=== PATIENT | male | born 1985 | race Caucasian/White ===

== ENCOUNTER 2021-08-28 07:51 | Emergency (ER) | payer MEDICAID ==
[2021-08-28] MEDS ORDERED: KETOROLAC 15 MG/ML 1 ML VIAL IVP STA ×2 (08:01→09:30)
[2021-08-28] MEDS ORDERED: ONDANSETRON 4 MG/2 ML VIAL IVP STA (08:01)
[2021-08-28] MEDS ORDERED: HYDROmorphone 1 MG/ML 1 ML SYRINGE IVP STA (08:01)
[2021-08-28 08:04] VITALS: RESP 16; TEMP 98.3
[2021-08-28 08:21] LABS: Basophils # (A) 0.2 k/uL (0-0.2); Basophils % (A) 2 %; Eosinophils # (A) 0.2 k/uL (0-0.7); Eosinophils % (A) 1 %; HCT 51.8 % (39.0-53.0); Lymphocytes # (A) 2.6 k/uL (1.0-4.8); Lymphocytes % (A) 23 %; MCH 30.7 pg (25.0-35.0); MCHC 32.9 g/dL (31.0-37.0); MCV 93.3 fL (80.0-100.0); Monocytes # (A) 0.5 k/uL (0-1.0); Monocytes % (A) 5 %; Neutrophils # (A) 7.7 k/uL (1.3-7.7); Neutrophils % (A) 68 %; Platelet Count 205 k/uL (150-450); RBC 5.56 m/uL (4.30-5.90); RDW 12.8 % (11.5-15.5); WBC 11.4 k/uL (3.8-10.6)
[2021-08-28] MEDS ORDERED: DIAZEPAM 5 MG/ML 2 ML INJ IVP STA (08:28)
[2021-08-28 08:33] LABS: ALT 78 U/L (4-49); AST 29 U/L (17-59); African American GFR (CKD) >90 (>60 ml/min/1.73 sqM); Albumin 4.7 g/dL (3.5-5.0); Alkaline Phosphatase 46 U/L (38-126); Anion Gap 10 mmol/L; Blood Urea Nitrogen 23 mg/dL (9-20); C Reactive Protein <0.5 mg/dL (<1.0); Calcium 9.5 mg/dL (8.4-10.2); Carbon Dioxide 25 mmol/L (22-30); Chloride 105 mmol/L (98-107); Glucose 112 mg/dL (74-99); Non-African American GFR(CKD) 85 (>60 ml/min/1.73 sqM); Potassium 4.1 mmol/L (3.5-5.1); Sodium 140 mmol/L (137-145); Total Bilirubin 1.1 mg/dL (0.2-1.3); Total Protein 7.5 g/dL (6.3-8.2)
--- NOTE | 2021-08-28 08:40 | ED ---
General Adult HPI - General Chief complaint: Extremity Injury, Lower Stated complaint: Back pain Time Seen by Provider: 08/28/21 07:55 Source: patient, RN notes reviewed Mode of arrival: ambulatory Limitations: no limitations - History of Present Illness Initial comments: This a 35-year-old male presents emergency Department with chief complaint of low back pain, left leg radicular symptoms. Patient states been struggling with this for last several weeks but states this past week she's had increasing discomfort in which she's been on prednisone 50 mg, he states he seen his chiropractor twice. He states that the pain is just unbearable today. He states he has pain, numbness down his left leg and the lateral toes. Patient does have history of back surgery in which he had his L4-L5 disc when he was 20. Patient denies any bowel incontinence. He states that he is able to urinate states feels different at times but states he is able to empty his bladder. Patient has no abdominal pain no fevers or chills no trauma. - Related Data Previous Rx's Medication Instructions Recorded Cyclobenzaprine [Flexeril] 10 mg PO TID PRN #15 tab 08/28/21 HYDROcodone/APAP 5-325MG [[place] 5] 1 each PO Q6HR PRN #12 tab 08/28/21 predniSONE 10 mg PO DIRECTED #20 tab 08/28/21 Allergies Allergy/AdvReac Type Severity Reaction Status Date / Time cephalexin [From Keflex] AdvReac Unknown Verified 08/28/21 08:04 Review of Systems ROS Statement: Those systems with pertinent positive or pertinent negative responses have been documented in the HPI. ROS Other: All systems not noted in ROS Statement are negative. Past Medical History Additional Past Medical History / Comment(s): hypopituitary syndrome, hypogonadism History of Any Multi-Drug Resistant Organisms: None Reported Past Surgical History: Orthopedic Surgery Additional Past Surgical History / Comment(s): back surgery, shoulder surgery x2 Past Psychological History: No Psychological Hx Reported Smoking Status: Never smoker Past Alcohol Use History: Occasional Past Drug Use History: None Reported General Exam Limitations: no limitations General appearance: alert, in no apparent distress, other (Appears uncomfortable) Respiratory exam: Present: normal lung sounds bilaterally. Absent: respiratory distress, wheezes, rales, rhonchi, stridor Cardiovascular Exam: Present: regular rate, normal rhythm, normal heart sounds. Absent: systolic murmur, diastolic murmur, rubs, gallop, clicks Back exam: Present: tenderness. Absent: full ROM Skin exam: Present: warm, dry, intact, normal color. Absent: rash Course Vital Signs 08/28/21 07:55 Temperature 98.3 F Pulse Rate 104 H Respiratory 16 Rate Blood Pressure 154/129 O2 Sat by Pulse 97 Oximetry Medical Decision Making - Medical Decision Making CT shows evidence of degenerative changes, possible S1 compression on the left. Patient did have some mild improvement after Toradol and 1 mg Valium. Patient's they will see him today, sitting at this point. He feels comfortable with discharge with probable pain control return parameters were discussed. MRI was written - Lab Data Result diagrams: 08/28/21 08:00 08/28/21 08:00 Lab Results 08/28/21 08/28/21 Range/Units 08:00 08:00 WBC 11.4 H (3.8-10.6) k/uL RBC 5.56 (4.30-5.90) m/uL Hgb 17.0 (13.0-17.5) gm/dL Hct 51.8 (39.0-53.0) % MCV 93.3 (80.0-100.0) fL MCH 30.7 (25.0-35.0) pg MCHC 32.9 (31.0-37.0) g/dL RDW 12.8 (11.5-15.5) % Plt Count 205 (150-450) k/uL MPV 8.0 Neutrophils % 68 % Lymphocytes % 23 % Monocytes % 5 % Eosinophils % 1 % Basophils % 2 % Neutrophils # 7.7 (1.3-7.7) k/uL Lymphocytes # 2.6 (1.0-4.8) k/uL Monocytes # 0.5 (0-1.0) k/uL Eosinophils # 0.2 (0-0.7) k/uL Basophils # 0.2 (0-0.2) k/uL Sodium 140 (137-145) mmol/L Potassium 4.1 (3.5-5.1) mmol/L Chloride 105 (98-107) mmol/L Carbon Dioxide 25 (22-30) mmol/L Anion Gap 10 mmol/L BUN 23 H (9-20) mg/dL Creatinine 1.13 (0.66-1.25) mg/dL Est GFR (CKD-EPI)AfAm >90 (>60 ml/min/1.73 sqM) Est GFR (CKD-EPI)NonAf 85 (>60 ml/min/1.73 sqM) Glucose 112 H (74-99) mg/dL Calcium 9.5 (8.4-10.2) mg/dL Total Bilirubin 1.1 (0.2-1.3) mg/dL AST 29 (17-59) U/L ALT 78 H (4-49) U/L Alkaline Phosphatase 46 (38-126) U/L C-Reactive Protein <0.5 (<1.0) mg/dL Total Protein 7.5 (6.3-8.2) g/dL Albumin 4.7 (3.5-5.0) g/dL Disposition Clinical Impression: Left sacral radiculopathy, Lumbar back pain Disposition: HOME SELF-CARE Condition: Stable Additional Instructions: Please return to the Emergency Department if symptoms worsen or any other concerns. Prescriptions: Cyclobenzaprine [Flexeril] 10 mg PO TID PRN #15 tab PRN Reason: Muscle Spasm HYDROcodone/APAP 5-325MG [[place] 5] 1 each PO Q6HR PRN #12 tab PRN Reason: Pain predniSONE 10 mg PO DIRECTED #20 tab Is patient prescribed a controlled substance at d/c from ED?: Yes When asked, does pt state using other controlled substances?: No If prescribed controlled substance>3 days was MAPS reviewed?: Prescribed <3 Days If opioid is for acute pain is fill amount 7 days or less?: Yes If Rx opioid, was Start Talking consent form obtained?: Yes Referrals: Erin Lee DO [Primary Care Provider] - 1-2 days Time of Disposition: 09:38
--- NOTE | 2021-08-28 08:55 | CT ---
EXAMINATION TYPE: CT lumbar spine wo con DATE OF EXAM: 08/28/2021 8:38 AM COMPARISON: None available HISTORY: Pain, left radicular symptoms CT DLP: 1541.4 mGycm Automated exposure control for dose reduction was used. Technique: Unenhanced CT of the lumbar spine was performed. Bone and soft tissue window settings are submitted as well as coronal and sagittal reconstructions. FINDINGS: Artifactual images. Minimal levoscoliosis of the lower lumbar spine which could be positional. Mild r etrolisthesis of L5 over S1. No definite vertebral body collapse or acute displaced fracture. Tiny mu ltiple opposing endplate osteophytosis. Bilateral L4-5 facet osteoarthropathy. L1-L2: Mild disc degeneration without significant central spinal canal stenosis or neural foraminal s tenosis. L2-L3: No significant disc herniation or protrusion. No significant central spinal canal stenosis or neuroforaminal stenosis. L3-L4: Suspected small left focal foraminal disc protrusion, causing no significant central spinal ca nal stenosis or neural foraminal stenosis. L4-L5: Small left focal preforaminal disc protrusion associated with bilateral facet osteoarthropathy and slightly prominent posterior epidural fat, causing no significant central spinal canal stenosis or neuroforaminal stenosis. L5-S1: Slightly degenerated disc associated with posterior osteophytosis and facet osteoarthropathy, causing no significant central spinal canal stenosis or significant neural foraminal stenosis. Questi onable compression of the left S1 nerve root in its lateral recess. No paraspinal lesion. IMPRESSION: No acute fracture or dislocation. Mild degenerative changes with mild multilevel DDD as described abo ve. Questionable indentation/compression of the left S1 nerve root in its lateral recess, please daily elate clinically. Further MRI assessment can be considered if clinically required.
[2021-08-28] MEDS ORDERED: methylPREDNISolone SOD SUCCI 125 MG/2 ML VIAL IV STA (09:30)
[2021-08-28 09:50] VITALS: BP 142/98; PULSE 98
== END 2021-08-28 09:49 | disposition home or self-care (01) ==
LOC: EC 07:51
DX: M54.18 Radiculopathy, sacral and sacrococcygeal region (principal); M54.50 Low back pain, unspecified
CPT/HCPCS: 36415; 80053; 85025; 86140; 72131; 99284; 96374; 96375 ×3; 96376; J2930; J3360; J2405; J1885

== ENCOUNTER → 2021-09-06 | Outpatient (CLI) | payer MEDICAID ==
--- NOTE | 2021-09-06 10:14 | MR ---
EXAMINATION TYPE: MR lumbar spine wo/w con DATE OF EXAM: 09/06/2021 COMPARISON: CT lumbar spine August 28, 2021 HISTORY: Back pain into left leg causing weakness. History of L5-S1 disc surgery. Abnormal CT. TECHNIQUE: Multiplanar, multisequence images of the lumbar spine is performed without and with IV contrast, util izing 14 mL intravenous Gadavist FINDINGS: Sagittal images of the lumbar spine show vertebral body heights and alignment to remain sat isfactory. Disc desiccation L4-L5 and L5-S1 levels. No significant disc space narrowing. The conus me dullaris is normal in position and signal ending superior L1 level. The bone marrow signal intensity is within normal limits. No abnormal postcontrast enhancement is seen. Axial images show T12-L1 through the L3-L4 levels to appear within normal limits. Axial images at the L4-L5 level show broad-based left paracentral disc protrusion and annular tear mi nimally effacing the anterolateral thecal sac, patent bilateral neural foramina. Mild bilateral facet arthropathy redemonstrated. Axial images at the L5-S1 level shows more prominent broad-based left paracentral/foraminal disc prot rusion on axial images 6 and 7 corresponding to sagittal images 9 and 10. Mild effacement of the left anterolateral thecal sac as seen as there is increased epidural fat at this level. There is however more prominent abnormal signal or effacement of the lateral recess and the central S1 nerve axial aldair ge 6 for reference. Postcontrast images show enhancing scar tissue surrounding the left central S1 ne rve for reference axial image 6. Bilateral neural foramina are patent. Paraspinal muscle bulk is preserved. IMPRESSION: Degenerative changes in the lower lumbar spine as detailed above most concerning is the l eft paracentral L5-S1 level where abnormality continuous with disc space is present, unusual enhancem ent surrounding the S1 nerve suggests scar tissue over disc herniation. Correlation with prior histor y of surgery recommended. Without postcontrast images would suspect large herniation effacing central S1 nerve.
--- NOTE | 2021-09-06 10:25 | MR ---
EXAMINATION TYPE: MR pelvis wo con DATE OF EXAM: 09/06/2021 COMPARISON: CT lumbar spine August 28, 2021. HISTORY: Low back pain into left leg. Weakness. Post L5-S1 disc surgery. Standard multiplanar, multisequence MRI departmental protocol Multiplanar, multisequence images of the pelvis were acquired without contrast. FINDINGS: Since hip and sacroiliac joints appear symmetric and within normal limits. Bone marrow sign al intensity is maintained. No suspicious edema is present. Pubic symphysis is intact. No suspicious small or large bowel dilatation. Urinary bladder and prostate gland appear within ramses l limits. No abnormal groin hernia or adenopathy is seen. Muscle bulk in the bilateral thighs is symm etric and felt within normal limits. Slight asymmetric posterior muscular atrophy posterior to the sacrum on the left frontal reference ax ial images 23 through 28 corresponding to coronal image 22. IMPRESSION: Asymmetric posterior left sacral muscular atrophy otherwise unremarkable study.
== END | disposition home or self-care (01) ==
LOC: RADMRIMAIN 07:40
PROVIDERS: ATTEND Orthopaedic Surgery
DX: M45.0 Ankylosing spondylitis of multiple sites in spine (principal); M47.816 Spondylosis without myelopathy or radiculopathy, lumbar region; M51.26 Other intervertebral disc displacement, lumbar region
CPT/HCPCS: 72158; 72195; A9585

== ENCOUNTER → 2021-11-05 | Outpatient (CLI) | payer MEDICAID | END | disposition home or self-care (01) | LOC: LABWHC1 07:39 | PROVIDERS: ATTEND Nurse Practitioner Family | DX: R53.83 Other fatigue (principal) | CPT/HCPCS: 36415; 83036; 84402; 84403; 84443 ==

== ENCOUNTER → 2022-11-13 | Outpatient (CLI) | payer MEDICAID ==
[2022-11-13 11:15] LABS: ALT 86 U/L (10-49); AST 47 U/L (14-35); Albumin 4.8 d/dL (3.8-4.9); Alkaline Phosphatase 28 U/L (41-126); BUN/Creat Ratio 10.36 Ratio (12.00-20.00); Blood Urea Nitrogen 11.4 mg/dL (9.0-27.0); Calcium 9.5 mg/dL (8.7-10.3); Chloride 103 mmol/L (96-109); Chol/HDL Ratio 5.15 Ratio; Globulin 2.4 d/dL (1.6-3.3); Glucose 104 mg/dL (70-110); LDL Cholesterol,Calculated 131.8 mg/dL (0.0-131.0); Potassium 4.4 mmol/L (3.5-5.5); Sodium 139 mmol/L (135-145); T4, Free (Free Thyroxine) 0.89 ng/dL (0.80-1.80); Total Bilirubin 1.2 mg/dL (0.3-1.2); Total Protein 7.2 d/dL (6.2-8.2); VLDL Calculation 18.92 mg/dL (5.00-40.00)
[2022-11-13 12:04] LABS: Follicle Stimulating Hormone <0.3 mIU/mL; Luteinizing Hormone <1.0 mIU/mL
[2022-11-13 12:08] LABS: Basophils # (A) 0.12 X 10*3/uL (0.00-0.10); Basophils % (A) 1.4 %; Eosinophils # (A) 0.21 X 10*3/uL (0.04-0.35); Eosinophils % (A) 2.5 %; HCT 54.7 % (39.6-50.0); HGB 18.4 d/dL (13.0-17.0); Lymphocytes # (A) 2.06 X 10*3/uL (0.90-5.00); Lymphocytes % (A) 24.3 %; MCH 30.9 pg (27.0-32.0); MCHC 33.6 d/dL (32.0-37.0); MCV 91.8 FL (80.0-97.0); Mean Platelet Volume 10.7 FL (9.5-12.2); Monocytes # (A) 0.75 X 10*3/uL (0.20-1.00); Monocytes % (A) 8.9 %; NRBC Per 100 WBC 0 X 10*3/uL (0.00-0.01); Neutrophils # (A) 5.24 X 10*3/uL (1.80-7.70); Neutrophils % (A) 61.8 %; Platelet Count 234 X 10*3/uL (140-440); RBC 5.96 X 10*6/uL (4.40-5.60); WBC 8.47 X 10*3/uL (4.50-10.00)
== END | disposition home or self-care (01) ==
LOC: LABWHC1 07:07
PROVIDERS: ATTEND Orthopaedic Surgery
DX: R54 Age-related physical debility (principal); Z79.890 Hormone replacement therapy
CPT/HCPCS: 36415; 80053; 80061; 82626; 82670; 83001; 83002; 83036; 84146; 84153; 84270; 84305; 84402; 84403; 84439; 84443; 84480; 84482; 85025

== ENCOUNTER → 2023-09-09 | Outpatient (CLI) | payer MEDICAID ==
[2023-09-09 10:52] LABS: HCT 52.2 % (39.6-50.0); HGB 17.2 g/dL (13.0-17.0); MCH 30.8 pg (27.0-32.0); MCV 93.4 FL (80.0-97.0); Mean Platelet Volume 10.3 FL (9.5-12.2); NRBC Per 100 WBC 0 X 10*3/uL (0.00-0.01); Platelet Count 240 X 10*3/uL (140-440); RBC 5.59 X 10*6/uL (4.40-5.60); RDW 13.2 % (11.5-14.5); WBC 7.13 X 10*3/uL (4.50-10.00)
[2023-09-09 11:07] LABS: INR 1.08 sec (0.93-1.11); Prothrombin Time 11.6 sec (9.9-11.9)
[2023-09-09 11:20] LABS: ALT 84 U/L (10-49); AST 36 U/L (14-35); Albumin 4.7 g/dL (3.8-4.9); Albumin/Globulin Ratio 1.88 Ratio (1.60-3.17); Alkaline Phosphatase 29 U/L (41-126); BUN/Creat Ratio 10.42 Ratio (12.00-20.00); Blood Urea Nitrogen 12.5 mg/dL (9.0-27.0); Calcium 9.9 mg/dL (8.7-10.3); Carbon Dioxide 27.8 mmol/L (21.6-31.8); Chloride 101 mmol/L (96-109); Chol/HDL Ratio 5.91 Ratio; Estradiol 93.2 pg/mL; Globulin 2.5 g/dL (1.6-3.3); Glucose 94 mg/dL (70-110); LDL Cholesterol,Calculated 139.1 mg/dL (0.0-131.0); Potassium 4.2 mmol/L (3.5-5.5); Prostate Specific Antigen 0.58 ng/mL (0.000-2.500); Sodium 138 mmol/L (135-145); T4, Free (Free Thyroxine) 1.02 ng/dL (0.80-1.80); Total Bilirubin 1.5 mg/dL (0.3-1.2); Total Protein 7.2 g/dL (6.2-8.2)
== END | disposition home or self-care (01) ==
LOC: LABWHC1 06:52
PROVIDERS: ATTEND Orthopaedic Surgery
DX: E29.1 Testicular hypofunction (principal); R53.83 Other fatigue; R86.1 Abnormal level of hormones in specimens from male genital organs
CPT/HCPCS: 36415; 80053; 80061; 82040; 82306; 82626; 82670; 83036; 84146; 84153; 84270; 84403; 84439; 84443; 84481; 85027; 85610

== ENCOUNTER → 2024-01-19 | Outpatient (CLI) | payer MEDICAID ==
[2024-01-19 10:12] LABS: Basophils # (A) 0.13 X 10*3/uL (0.00-0.10); Basophils % (A) 0.9 %; Eosinophils # (A) 0.14 X 10*3/uL (0.04-0.35); HGB 17.4 g/dL (13.0-17.0); Lymphocytes # (A) 2.07 X 10*3/uL (0.90-5.00); Lymphocytes % (A) 14.7 %; MCH 30.5 pg (27.0-32.0); MCHC 32.8 g/dL (32.0-37.0); MCV 92.8 FL (80.0-97.0); Monocytes # (A) 1.21 X 10*3/uL (0.20-1.00); Monocytes % (A) 8.6 %; NRBC Per 100 WBC 0 X 10*3/uL (0.00-0.01); Neutrophils # (A) 10.35 X 10*3/uL (1.80-7.70); Neutrophils % (A) 73.4 %; Platelet Count 234 X 10*3/uL (140-440); RBC 5.71 X 10*6/uL (4.40-5.60); RDW 14.2 % (11.5-14.5)
[2024-01-19 10:43] LABS: C Reactive Protein <0.30 mg/dL (0.00-0.80); Chol/HDL Ratio 4.97 Ratio; Creatine Kinase 530 U/L (35-257); Estradiol 61.8 pg/mL; Prostate Specific Antigen 0.37 ng/mL (0.000-2.500); T4, Free (Free Thyroxine) 1.19 ng/dL (0.80-1.80); VLDL Calculation 15.96 mg/dL (5.00-40.00)
[2024-01-19 10:47] LABS: ALT 76 U/L (10-49); AST 39 U/L (14-35); Albumin 4.5 g/dL (3.8-4.9); Albumin/Globulin Ratio 1.88 Ratio (1.60-3.17); Alkaline Phosphatase 28 U/L (41-126); BUN/Creat Ratio 15.18 Ratio (12.00-20.00); Blood Urea Nitrogen 16.7 mg/dL (9.0-27.0); Calcium 9.8 mg/dL (8.7-10.3); Carbon Dioxide 26.6 mmol/L (21.6-31.8); Chloride 101 mmol/L (96-109); Globulin 2.4 g/dL (1.6-3.3); Glucose 92 mg/dL (70-110); Potassium 4.7 mmol/L (3.5-5.5); Sodium 137 mmol/L (135-145); Total Bilirubin 2.3 mg/dL (0.3-1.2); Total Protein 6.9 g/dL (6.2-8.2)
[2024-01-19 10:48] LABS: Erythrocyte Sedimentation Rate 6 mm/Hr (0-15)
[2024-02-07 19:42] LABS: Albumin, LC/MS/MS 4.5 g/dL (3.6-5.1)
== END | disposition home or self-care (01) ==
LOC: LABWHC1 07:03
PROVIDERS: ATTEND Orthopaedic Surgery
DX: E86.0 Dehydration (principal); R53.83 Other fatigue
CPT/HCPCS: 36415; 80053; 80061; 82040; 82550; 82626; 82670; 83036; 84146; 84153; 84270; 84403; 84439; 84443; 84481; 85025; 85379; 85652; 86140

== ENCOUNTER → 2024-01-21 | Outpatient (CLI) | payer MEDICAID ==
--- NOTE | 2024-01-21 11:29 | US ---
EXAMINATION TYPE: US venous doppler duplex LE BI DATE OF EXAM: 01/21/2024 10:22 AM COMPARISON: NONE CLINICAL INDICATION: Male, 38 years old with history of R25.2 CRAMP AND SPASM I80.03 DVT BLE; left le g cramps, TECHNIQUE: The lower extremity deep venous system is examined utilizing real time linear array sonog bobby with graded compression, color doppler sonography, and spectral doppler. SIDE PERFORMED: Bilateral FINDINGS: VESSELS IMAGED: Common Femoral Vein Deep Femoral Vein Greater Saphenous Vein * Femoral Vein Popliteal Vein Small Saphenous Vein * Proximal Calf Veins (* superficial vessels) Right Leg: Negative for DVT, Color Doppler imaging shows patency of the vessels. Spectral waveforms are within normal limits. Left Leg: Negative for DVT, Color Doppler imaging shows patency of the vessels. Spectral waveforms a re within normal limits. IMPRESSION: No ultrasound evidence for deep venous thrombosis. [facility], , 01/21/2024 11:26 AM
== END | disposition home or self-care (01) ==
LOC: RADUSWWP 10:01
PROVIDERS: ATTEND Orthopaedic Surgery
DX: I80.03 Phlebitis and thrombophlebitis of superficial vessels of lower extremities, bilateral (principal); R25.2 Cramp and spasm
CPT/HCPCS: 93970

== ENCOUNTER → 2024-03-30 | Outpatient (CLI) | payer MEDICAID ==
--- NOTE | 2024-03-30 08:31 | CT ---
EXAMINATION TYPE: CT lumbar spine wo con CT DLP: 1081.3 mGycm, Automated exposure control for dose reduction was used. DATE OF EXAM: 03/30/2024 7:34 AM COMPARISON: CT lumbar spine 08/28/2021, MRI lumbar spine 09/06/2021. CLINICAL INDICATION:Male, 38 years old with history of M47.26 SPONDYLOSIS WITH RADICULOPATHY, LUMBAR; PHH, low back pain TECHNIQUE: Multiple axial images were obtained from the midportion of L1 through the sacroiliac join ts. Soft tissue and bone windows in coronal and sagittal planes were obtained and reviewed. Contrast used: none. Oral contrast used: none. FINDINGS: Alignment: There are 5 lumbar type vertebral bodies within normal alignment. Bone: No evidence of fracture is identified. SI joints appear intact bilaterally. Discs: L1-L2: No spinal canal or neural foraminal stenosis is identified. Small Schmorl's node involving th e inferior endplate of the L1 vertebral body. L2-L3: No spinal canal or neural foraminal stenosis is identified. L3-L4: No spinal canal or neural foraminal stenosis is identified. L4-L5: Broad-based disc bulge with mild effacement of anterior thecal sac. No neural foraminal stenos is. L5-S1: Central/paracentral disc protrusion superimposed upon a broad-based disc bulge with mild effac ement of the anterior thecal sac and abutment of the exiting left S1 nerve root in the lateral recess . No neuroforaminal stenosis. Other: None IMPRESSION: 1. No evidence for acute spinal fracture. 2. Overall similar lower lumbar spine degenerative disc disease with L5-S1 disc protrusion with mild central canal stenosis and abutment of the exiting left S1 nerve root. [facility], , 03/30/2024 8:28 AM
== END | disposition home or self-care (01) ==
LOC: RADCTMAIN 06:59
PROVIDERS: ATTEND Orthopaedic Surgery
DX: M47.26 Other spondylosis with radiculopathy, lumbar region (principal); M48.061 Spinal stenosis, lumbar region without neurogenic claudication; M51.16 Intervertebral disc disorders with radiculopathy, lumbar region
CPT/HCPCS: 72131

== ENCOUNTER → 2024-05-19 | Outpatient (CLI) | payer MEDICAID ==
[2024-05-19 08:21] LABS: Partial Thromboplastin Time 24.4 sec (22.0-30.0); Prothrombin Time 10.7 sec (10.0-12.5)
[2024-05-19 10:12] LABS: Basophils % (A) 1.5 %; Eosinophils # (A) 0.16 X 10*3/uL (0.04-0.35); Eosinophils % (A) 2.4 %; HCT 49.2 % (39.6-50.0); HGB 16.2 g/dL (13.0-17.0); Lymphocytes # (A) 1.81 X 10*3/uL (0.90-5.00); Lymphocytes % (A) 27.3 %; MCH 29.6 pg (27.0-32.0); MCHC 32.9 g/dL (32.0-37.0); MCV 89.8 FL (80.0-97.0); Mean Platelet Volume 10.2 FL (9.5-12.2); NRBC Per 100 WBC 0 X 10*3/uL (0.00-0.01); Neutrophils # (A) 3.93 X 10*3/uL (1.80-7.70); Neutrophils % (A) 59.3 %; Platelet Count 330 X 10*3/uL (140-440); RBC 5.48 X 10*6/uL (4.40-5.60); RDW 13.1 % (11.5-14.5); WBC 6.63 X 10*3/uL (4.50-10.00)
[2024-05-19 10:39] LABS: Chol/HDL Ratio 4.89 Ratio; LDL Cholesterol,Calculated 88.9 mg/dL (0.0-131.0); VLDL Calculation 14.48 mg/dL (5.00-40.00)
[2024-05-19 10:40] LABS: ALT 62 U/L (10-49); AST 37 U/L (14-35); Albumin 4.5 g/dL (3.8-4.9); Albumin/Globulin Ratio 1.61 Ratio (1.60-3.17); Alkaline Phosphatase 39 U/L (41-126); BUN/Creat Ratio 15.64 Ratio (12.00-20.00); Blood Urea Nitrogen 17.2 mg/dL (9.0-27.0); Calcium 9.8 mg/dL (8.7-10.3); Carbon Dioxide 26.5 mmol/L (21.6-31.8); Chloride 104 mmol/L (96-109); Globulin 2.8 g/dL (1.6-3.3); Glucose 88 mg/dL (70-110); Potassium 4.4 mmol/L (3.5-5.5); Sodium 141 mmol/L (135-145); T4, Free (Free Thyroxine) 0.98 ng/dL (0.80-1.80); Total Bilirubin 0.9 mg/dL (0.3-1.2); Total Protein 7.3 g/dL (6.2-8.2)
[2024-05-19 10:50] LABS: Erythrocyte Sedimentation Rate 32 mm/Hr (0-15)
[2024-05-19 11:25] LABS: Creatine Kinase 349 U/L (35-257); Prostate Specific Antigen 1.06 ng/mL (0.000-2.500)
[2024-05-23 05:23] LABS: Cotinine <2.0 ng/mL (<2.0); Nicotine <2.0 ng/mL (<2.0)
== END | disposition home or self-care (01) ==
LOC: LABWHC1 07:11
PROVIDERS: ATTEND Orthopaedic Surgery
DX: Z01.812 Encounter for preprocedural laboratory examination (principal); M62.89 Other specified disorders of muscle; E86.0 Dehydration; R53.83 Other fatigue; Z22.322 Carrier or suspected carrier of Methicillin resistant Staphylococcus aureus
CPT/HCPCS: 36415; 80053; 80061; 80323; 82040; 82550; 82626; 82670; 83036; 84146; 84153; 84270; 84403; 84439; 84443; 84480; 85025; 85379; 85610; 85652; 85730; 86140; 87070

== ENCOUNTER → 2024-09-05 | Outpatient (CLI) | payer MEDICAID ==
[2024-09-05 08:03] LABS: INR 1.1 (<1.2); Partial Thromboplastin Time 22.8 sec (22.0-30.0); Prothrombin Time 12.2 sec (10.0-12.5)
[2024-09-05 10:35] LABS: ALT 86 U/L (10-49); AST 58 U/L (14-35); Albumin 4.4 g/dL (3.8-4.9); Albumin/Globulin Ratio 1.76 Ratio (1.60-3.17); Alkaline Phosphatase 35 U/L (41-126); Anion Gap 9.10 mmol/L (4.00-12.00); BUN/Creat Ratio 17.67 Ratio (12.00-20.00); Blood Urea Nitrogen 15.9 mg/dL (9.0-27.0); Calcium 9.3 mg/dL (8.7-10.3); Carbon Dioxide 24.9 mmol/L (21.6-31.8); Chloride 105 mmol/L (96-109); Cholesterol 157.00 mg/dL (0.00-200.00); Creatine Kinase 522 U/L (35-257); Globulin 2.5 g/dL (1.6-3.3); Glucose 97 mg/dL (70-110); HDL Cholesterol 25.20 mg/dL (40.00-60.00); LDL Cholesterol,Calculated 107.0 mg/dL (0.0-131.0); Potassium 4.6 mmol/L (3.5-5.5); Prostate Specific Antigen 0.72 ng/mL (0.000-2.500); Sodium 139 mmol/L (135-145); T4, Free (Free Thyroxine) 0.90 ng/dL (0.80-1.80); Total Protein 6.9 g/dL (6.2-8.2); Triglycerides 124.00 mg/dL (0.00-149.00); VLDL Calculation 24.80 mg/dL (5.00-40.00)
[2024-09-05 11:40] LABS: Basophils # (A) 0.07 X 10*3/uL (0.00-0.10); Basophils % (A) 1.3 %; Eosinophils # (A) 0.12 X 10*3/uL (0.04-0.35); Eosinophils % (A) 2.2 %; HCT 51.5 % (39.6-50.0); HGB 17.0 g/dL (13.0-17.0); Immature Grans, Automated 0.40 %; Lymphocytes # (A) 1.60 X 10*3/uL (0.90-5.00); Lymphocytes % (A) 28.9 %; MCH 29.5 pg (27.0-32.0); MCHC 33.0 g/dL (32.0-37.0); MCV 89.4 FL (80.0-97.0); Monocytes # (A) 0.62 X 10*3/uL (0.20-1.00); Monocytes % (A) 11.2 %; NRBC Per 100 WBC 0 X 10*3/uL (0.00-0.01); Neutrophils # (A) 3.11 X 10*3/uL (1.80-7.70); Neutrophils % (A) 56.0 %; Platelet Count 181 X 10*3/uL (140-440); RBC 5.76 X 10*6/uL (4.40-5.60); RBC Morphology Normal (Normal); RDW 14.1 % (11.5-14.5); WBC 5.54 X 10*3/uL (4.50-10.00)
== END | disposition home or self-care (01) ==
LOC: LABWHC1 07:01
PROVIDERS: ATTEND Orthopaedic Surgery
DX: R25.2 Cramp and spasm (principal); E86.0 Dehydration; R53.83 Other fatigue; M62.838 Other muscle spasm
CPT/HCPCS: 36415; 80053; 80061; 80307; 80323; 80377; 82040; 82550; 82626; 82670; 83036; 84146; 84153; 84270; 84403; 84439; 84443; 84480; 85025; 85379; 85610; 85652; 85730; 86140